=== PATIENT | female | born 1995 | race Hispanic/Latino ===

== ENCOUNTER → 2018-06-29 | Outpatient (CLI) | payer OTHER ==
--- NOTE | 2018-06-29 10:14 | Diagnostic Imaging Report ---
PROCEDURE:TRANSVAGINAL ULTRASOUND COMPARISON:None. INDICATIONS:PELVIC PAIN (LT) TECHNIQUE: Grayscale transverse and sagittal transabdominal and transvaginal images were obtained of the pelvis. Transvaginal imaging was medically necessary to better evaluate the endometrium. FINDINGS: UTERUS: 6.6 x 3 x 4.2 cm. Subcentimeter hypoechoic lesion in the posterior lower uterine segment just deep to the endometrial stripe may represent a small fibroid. ENDOMETRIUM: 0.4 cm in thickness. Uniform echotexture. RIGHT OVARY: 3.3 x 2 x 2.1 cm. Contains multiple small follicles. Grossly normal vascularity by color Doppler analysis. LEFT OVARY: 3.1 x 1.9 x 2.8 cm. Contains multiple small follicles. Grossly normal vascularity by color Doppler analysis. There is trace free fluid within the pelvis, likely physiologic. No adnexal masses. CONCLUSION: Subcentimeter hypoechoic lesion in the myometrium of the posterior lower uterine segment likely represents a small fibroid. Otherwise unremarkable pelvic ultrasound. Dictated by: Sandoval Edwards M.D. on 06/29/2018 at 10:22 Electronically approved by: Sandoval Edwards M.D. on 06/29/2018 at 10:22
--- NOTE | 2018-06-29 10:14 | Diagnostic Imaging Report ---
PROCEDURE:US PELVIS COMPLETE NON OB COMPARISON:None. INDICATIONS:PELVIC PAIN (LT) CONCLUSION: Please refer to "US TRANSVAGINAL" performed at the same date and time for full dictated report. Dictated by: Sandoval Edwards M.D. on 06/29/2018 at 10:22 Electronically approved by: Sandoval Edwards M.D. on 06/29/2018 at 10:22
== END ==
LOC: US 08:45
PROVIDERS: ATTEND Family Medicine
DX: R10.2 Pelvic and perineal pain (principal)
CPT/HCPCS: 76830; 76856

== ENCOUNTER 2024-05-26 01:20 | Emergency (ER) | payer OTHER ==
[~2024-05-26] VITALS: Ht 182.9 cm; Wt 74.4 kg
[2024-05-26 01:50] VITALS: PULSE 71; RESP 18; TEMP 98.5
[2024-05-26] MEDS: ONDANSETRON HCL INJ 2MG/ML 2ML 2 MG/ML VIAL IV STA ×2 (01:55→04:04)
[2024-05-26] MEDS: SODIUM CHLORIDE 0.9% 1000ML 1,000 ML IV STA (01:55)
[2024-05-26] MEDS: KETOROLAC TROMETHAMINE 30 MG/ML VIAL IV STA (01:55)
[2024-05-26 01:58] LABS: CLARITY,URINE CLOUDY (CLEAR); COLOR,URINE YELLOW (YELLOW); LEUKOCYTE ESTERASE ,URINE SMALL (NEGATIVE); NITRITE,URINE NEGATIVE (NEGATIVE); PH,URINE 8 (5 - 7); PROTEIN,URINE DIPSTICK NEGATIVE (NEGATIVE)
[2024-05-26 01:59] LABS: BILIRUBIN,URINE NEGATIVE (NEGATIVE); GLUCOSE, URINE NEGATIVE (NEGATIVE); KETONES,URINE NEGATIVE (NEGATIVE); URINE UROBILINOGEN 1 mg/dL (0.2 - 1)
[2024-05-26 02:01] LABS: AMORPHOUS SEDIMENT,URINE MODERATE (FEW); BACTERIA,URINE MODERATE /HPF; EPITHELIAL CELLS,URINE FEW /LPF; WBC,URINE (MAN) 0-5 /HPF (0-5)
[2024-05-26 02:13] LABS: BASOPHILS % 0.3 % (0.0-1.0); EOSINOPHILS # (AUTO) 0.1 (0.0-0.4); EOSINOPHILS % 0.8 % (0.0-6.0); HEMATOCRIT 37.3 % (34.2-44.1); HEMOGLOBIN 12.4 g/dL (12.0-16.0); LYMPHOCYTES # (AUTO) 4.1 (1.0-3.2); LYMPHOCYTES % 46.4 % (18.0-39.1); MEAN CORPUSCULAR HEMOGLOBIN 32.5 pg (28-32); MEAN CORPUSCULAR HGB CONC 33.2 g/dL (31-35); MEAN CORPUSCULAR VOLUME 97.9 fL (81-99); MONOCYTES # (AUTO) 0.5 (0.2-0.8); MONOCYTES % 5.2 % (4.4-11.3); NEUTROPHILS # (AUTO) 4.2 (2.1-6.9); NEUTROPHILS % 47.1 % (38.7-80.0); PLATELET COUNT 201 x10e3/uL (140-360); RED BLOOD COUNT 3.81 x10e6/uL (3.6-5.1); RED CELL DISTRIBUTION WIDTH 12.2 % (11.7-14.4); WHITE BLOOD COUNT 8.92 x10e3/uL (4.8-10.8)
[2024-05-26 02:21] LABS: ALBUMIN 3.9 g/dL (3.5-5.0); ALBUMIN/GLOBULIN RATIO 1.2 (0.8-2.0); BILIRUBIN,TOTAL 0.3 mg/dL (0.2-1.2); CALCIUM 9.8 mg/dL (8.4-10.2); CREATININE, SERUM 0.95 mg/dL (0.57-1.11); TOTAL PROTEIN 7.1 g/dL (6.5-8.1)
[2024-05-26] MEDS: Morphine 4mg INJECTION 4 MG/ML INJ IV STA (04:04)
[2024-05-26] MEDS ORDERED: ONDANSETRON ODT4 MG PO (04:05)
[2024-05-26] MEDS ORDERED: KETOROLAC TROME10 MG PO (04:05)
[2024-05-26] MEDS ORDERED: ULTRAM 50MG50 MG PO (04:05)
[2024-05-26] MEDS ORDERED: FLOMAX0.4 MG PO (04:05)
[2024-05-26 04:33] VITALS: BP 129/71; PULSE 79; RESP 17; TEMP 98.3; O2SAT 100
== END 2024-05-26 04:37 | disposition home or self-care (01) ==
LOC: ER 01:38
DX: N13.2 Hydronephrosis with renal and ureteral calculous obstruction (principal)
CPT/HCPCS: 36415; 74176; 80053; 81001; 81025; 83690; 85025; 99283; J1885; J2270; J2405; J7030